=== PATIENT | female | born 1945 | race Asian ===

== ENCOUNTER 2024-07-29 08:48 | Day surgery (SDC) | payer MEDICARE ==
[2024-07-28 12:36] LABS: BASOPHILS # (AUTO) 0.1 X10'3 (0-0.2); BASOPHILS % (AUTO) 1.1 % (0-1); EOSINOPHILS # (AUTO) 0.2 X10'3 (0-0.9); EOSINOPHILS % (AUTO) 2.8 % (0-6); HEMATOCRIT 37.2 % (35.0-45.0); HEMOGLOBIN 12.3 g/dl (12.0-16.0); LYMPHOCYTES # (AUTO) 1.7 X10'3 (1.1-4.8); LYMPHOCYTES % (AUTO) 29.4 % (21-51); MEAN CORPUSCULAR HEMOGLOBIN 29.6 PG (27.0-31.0); MEAN CORPUSCULAR HGB CONC 33.1 g/dL (33.0-36.5); MEAN CORPUSCULAR VOLUME 89.4 FL (78-98); MEAN PLATELET VOLUME 6.9 FL (7.4-10.4); MONOCYTES # (AUTO) 0.6 X10'3 (0-0.9); MONOCYTES % (AUTO) 9.7 % (2-12); NEUTROPHILS # (AUTO) 3.3 X10'3 (1.8-7.7); PLATELET COUNT 318 X10'3 (140-440); RED BLOOD COUNT 4.15 X10'6 (4.20-5.60); RED CELL DISTRIBUTION WIDTH 13.7 % (11.5-14.5); WHITE BLOOD COUNT 5.9 X10'3 (4.5-11.0)
[2024-07-28 12:42] LABS: ALBUMIN 4.3 G/DL (3.4-5.0); ANION GAP 7 (8-16); BLOOD UREA NITROGEN 15 MG/DL (7-18); BUN/CREATININE RATIO 13.6 (10.0-20.0); CALCIUM 9.1 MG/DL (8.5-10.1); CHLORIDE 99 MMOL/L (99-107); GLUCOSE 81 MG/DL (70-104); POTASSIUM 3.8 MMOL/L (3.5-5.1); SODIUM 134 MMOL/L (135-145); TOTAL CARBON DIOXIDE 28.4 MMOL/L (24-32); eGFR 48 ML/MIN
[2024-07-28 14:53] LABS: APTT 24 SECONDS (22-32); PROTHROMBIN TIME 10.1 SECONDS (9.0-12.0)
[2024-07-29] VITALS (14 sets, daily range): BP systolic 130–155; BP diastolic 63–110; PULSE 78–90; RESP 11–20; TEMP 98.3; O2SAT 95–100
[~2024-07-29] VITALS: Ht 157.5 cm; Wt 64.9 kg
[2024-07-29] MEDS ORDERED: EZET10TA48 PO (09:17)
[2024-07-29] MEDS ORDERED: OMEP40CA21 PO (09:18)
[2024-07-29] MEDS ORDERED: OMEG-166 PO (09:18)
[2024-07-29] MEDS ORDERED: CHOL100046 PO (09:19)
[2024-07-29] MEDS ORDERED: ceFAZolin 2gm in dextrose, iso 50 ML IV ONE (09:19)
[2024-07-29] MEDS ORDERED: normal saline 1000ml 1,000 ML IV SCH (09:20)
[2024-07-29] MEDS ORDERED: LOSA-416 PO (09:20)
[2024-07-29] MEDS ORDERED: GLUC1TAB75 PO (09:20)
[2024-07-29] MEDS ORDERED: FLEC50TA PO (09:21)
[2024-07-29] MEDS ORDERED: DILT120C19 PO (09:22)
[2024-07-29] MEDS ORDERED: CLOP75TA34 PO (09:32)
[2024-07-29] MEDS ORDERED: HYDR12.55 PO (09:33)
[2024-07-29] MEDS ORDERED: LIDOcaine 1% W/epiNEPHrine 1:100,000 20ml vial ONE (09:48)
[2024-07-29] MEDS ORDERED: midazolam 1 mg/ML 2ml injection ONE (09:48)
[2024-07-29] MEDS ORDERED: fentaNYL/PF 50MCG/1 ML 2ML syringe ONE (09:48)
[2024-07-29] MEDS ORDERED: ceFAZolin 1000mg inj ONE (09:48)
[2024-07-29] MEDS ORDERED: diphenhydrAMINE 50 mg/ml inj ONE (11:29)
[2024-07-29] MEDS: VANCOMYCIN 1GM 200ML H20 (PEG) 250 ML IV ONE (14:26)
[2024-07-29] MEDS: normal saline 1000ml 1,000 ML IV SCH (14:26)
[2024-07-29] MEDS ORDERED: CEPH-585 PO (14:58)
== END 2024-07-29 18:30 | disposition home or self-care (01) ==
LOC: SSTAY O 08:48
PROVIDERS: ATTEND Internal Medicine Cardiovascular Disease
DX: I49.5 Sick sinus syndrome (principal); R42 Dizziness and giddiness; R53.83 Other fatigue; I49.3 Ventricular premature depolarization; I10 Essential (primary) hypertension; I25.119 Atherosclerotic heart disease of native coronary artery with unspecified angina pectoris; E78.5 Hyperlipidemia, unspecified; M19.90 Unspecified osteoarthritis, unspecified site; Z86.73 Personal history of transient ischemic attack (TIA), and cerebral infarction without residual deficits; Z79.02 Long term (current) use of antithrombotics/antiplatelets; Z79.899 Other long term (current) drug therapy; Z90.49 Acquired absence of other specified parts of digestive tract; Z98.41 Cataract extraction status, right eye; Z98.42 Cataract extraction status, left eye; Z98.891 History of uterine scar from previous surgery; Z98.890 Other specified postprocedural states; Z82.49 Family history of ischemic heart disease and other diseases of the circulatory system
CPT/HCPCS: 33208; 36415; 71046; 80048; 85025; 85610; 85730; 93005; 99152; 99153; A4565; A6258; A6402; C1785; C1898; J0690; J1200; J2250; J3010; J3372; J3490; J7030; Z7610; A6449